=== PATIENT | female | born 1990 | race American Indian/Alaskan Native ===

== ENCOUNTER 2019-10-10 17:36 | Emergency (ER) | payer OTHER ==
--- NOTE | 2019-10-10 18:01 | Emergency Department Report ---
Blank Doc - Documentation Documentation: 28-year-old female that presents with n/v and is . denies any vaginal bleeding. This initial assessment/diagnostic orders/clinical plan/treatment(s) is/are subject to change based on patient's health status, clinical progression and re- assessment by fellow clinical providers in the ED. Further treatment and workup at subsequent clinical providers discretion. Patient/guardians urged not to elope from the ED as their condition may be serious if not clinically assessed and managed. Initial orders include: 1- Patient sent to [facility] for further evaluation and treatment 2-labs
--- NOTE | 2019-10-10 19:02 | Ultrasound Report ---
ULTRASOUND OBSTETRIC INDICATION / CLINICAL INFORMATION: pelvic pain. TECHNIQUE: Transabdominal. COMPARISON: None available. FINDINGS: GESTATIONAL SAC: Well-defined oval shape and intrauterine in location. YOLK SAC: No significant abnormality. EMBRYO/FETUS: No significant abnormality. - Blossom-Rump Length = 2.1 cm = 8 weeks, 5 day(s). - Heart Rate, beats per minute (if present) = 180 ADNEXA: No significant abnormality. FREE FLUID: None. ADDITIONAL FINDINGS: None. IMPRESSION: 1. Single, living intrauterine with estimated sonographic age of 8 weeks, 5 day(s). Signer Name: Saul Steward MD Signed: 10/10/2019 6:58 PM Workstation Name: [id number]
[2019-10-10] MEDS ORDERED: ONDANSETRON 4 MG/2 ML INJ IV ONE (19:06)
[2019-10-10] MEDS ORDERED: SODIUM CHLORIDE 0.9% 1000 ML 1,000 ML IV ONE (19:06)
[2019-10-10 19:08] LABS: Basophils % (Auto) 0.2 % (0.0-1.8); Hematocrit 36.4 % (30.3-42.9); Hemoglobin 12.1 gm/dl (10.1-14.3); Lymphocytes # (Auto) 0.9 K/mm3 (1.2-5.4); Lymphocytes % (Auto) 7.9 % (13.4-35.0); Mean Corpuscular HGB Conc 33 % (30-34); Mean Corpuscular Volume 81 fl (79-97); Monocytes # (Auto) 0.3 K/mm3 (0.0-0.8); Monocytes % (Auto) 2.6 % (0.0-7.3); Platelet Count 272 K/mm3 (140-440); Red Blood Count 4.52 M/mm3 (3.65-5.03); Red Cell Distribution Width 14.6 % (13.2-15.2)
[2019-10-10] MEDS ORDERED: MORPHINE 4 MG/1 ML INJ IV ONE ×2 (19:18→19:58)
--- NOTE | 2019-10-10 19:27 | Emergency Department Report ---
ED Abdominal Pain HPI - General Chief Complaint: Abdominal Pain Stated Complaint: PREG & DEHYDRATED Time Seen by Provider: 10/10/19 17:59 Source: patient Mode of arrival: Ambulatory Limitations: No Limitations - History of Present Illness Initial Comments: 28-year-old female with no past medical history or surgical history presents to the hospital planing of and pelvic pain since yesterday afternoon. Patient's LMP is May 20, 2019 and she states she plans on avoiding this . This is her second and she has 1 child and denies previous history of ectopics, miscarriages, abortions. For the moment I walk into the room patient is asking for morphine and is very difficult to examine. Patient states she is having lower abdominal cramping which is constant and becoming more severe with persistent nausea and vomiting. Patient states she needs morphine because she cannot take the pain anymore and she does not plan on k eeping the baby. She denies vaginal bleeding, care, or previous ultrasound during this . Patient also denies urinary symptoms, diarrhea, or fever. - Related Data Previous Rx's Medication Instructions Recorded Last Taken Type Acetaminophen/Codeine [Tylenol 1 tab PO Q6H PRN #10 tab 10/11/19 Unknown Rx /Codeine # 3 tab] Nitrofurantoin [place]/M-Cryst 100 mg PO Q12HR #14 capsule 10/11/19 Unknown Rx [Macrobid CAP] Ondansetron [Zofran Odt] 4 mg PO Q8HR PRN #20 tab.rapdis 10/11/19 Unknown Rx Potassium Chloride [K-Dur] 20 meq PO QDAY #3 tablet 10/11/19 Unknown Rx Allergies Allergy/AdvReac Type Severity Reaction Status Date / Time No Known Allergies Allergy Unverified 10/10/19 18:06 ED Review of Systems ROS: Stated complaint: PREG & DEHYDRATED Other details as noted in HPI Comment: All other systems reviewed and negative ED Past Medical Hx - Social History Smoking Status: Never Smoker Substance Use Type: None - Medications Home Medications: Home Medications Medication Instructions Recorded Confirmed Last Taken Type Acetaminophen/Codeine [Tylenol 1 tab PO Q6H PRN #10 tab 10/11/19 Unknown Rx /Codeine # 3 tab] Nitrofurantoin [place]/M-Cryst 100 mg PO Q12HR #14 capsule 10/11/19 Unknown Rx [Macrobid CAP] Ondansetron [Zofran Odt] 4 mg PO Q8HR PRN #20 tab.rapdis 10/11/19 Unknown Rx Potassium Chloride [K-Dur] 20 meq PO QDAY #3 tablet 10/11/19 Unknown Rx ED Physical Exam - General Limitations: No Limitations - Other Other exam information: General: + distress, difficult to exam due to pain and requests for morphine. Head: Atraumatic Eyes: normal appearance ENT: Moist mucous membranes Neck: Normal appearance, no midline tenderness Chest: Clear to auscultation bilaterally CV: Regular rate and rhythm Abdomen: Soft, normal bowel sounds, lower abdominal tenderness to palpation without rebound or guard, nondistended, no rebound or guarding Back: Normal inspection Extremity: Normal inspection, full range of motion Neuro: Alert O x 3, no facial asymmetry, speech clear, no gross motor sensory deficit Psych: Appropriate behavior Skin: No rash ED Course Vital Signs 10/10/19 18:00 Temperature 97.7 F Pulse Rate 63 Respiratory 18 Rate Blood Pressure 126/76 O2 Sat by Pulse 98 Oximetry - Reevaluation(s) Reevaluation #1: 10/10/19 20:26 I was able to reassess patient after a total of morphine 8 mg. She is asking for additional morphine and states she just wants to go to sleep. IV fluids in place. She just provided a urine sample. She denies fever. Patient reexamined and has primarily suprapubic tenderness to palpation that does extend to just below the umbilicus now that she has pain medication on board and is slightly more cooperative. No rebound or guarding. I told patient that she just received additional morphine we will give her additional medications if she continues to have pain but I cannot put her to sleep. 10/11/19 00:04 Patient did sleep for a while after receiving Benadryl but woke up requesting m ore pain medication stated she does not want to feel anything at discharge. She does look more relaxed with ED treatment and does not appear to be in acute distress and has persistent suprapubic pain without signs of right lower quadrant tenderness or rebound or guarding. Patient received IV Rocephin for UTI. Patient has requested narcotic pain medication throughout ED stay with a goal of being put to sleep and pain-free despite her . Patient insists that she does not plan on keeping this current and plans for an and understands there is adverse risk of IV narcotic exposure into her unborn child. ED Medical Decision Making - Lab Data Result diagrams: 10/10/19 18:01 10/10/19 18:01 Lab Results 10/10/19 10/10/19 10/10/19 Range/Units 18:01 18:01 18:01 WBC 11.3 H (4.5-11.0) K/mm3 RBC 4.52 (3.65-5.03) M/mm3 Hgb 12.1 (10.1-14.3) gm/dl Hct 36.4 (30.3-42.9) % MCV 81 (79-97) fl MCH 27 L (28-32) pg MCHC 33 (30-34) % RDW 14.6 (13.2-15.2) % Plt Count 272 (140-440) K/mm3 Lymph % (Auto) 7.9 L (13.4-35.0) % Peach % (Auto) 2.6 (0.0-7.3) % Eos % (Auto) 0.0 (0.0-4.3) % Baso % (Auto) 0.2 (0.0-1.8) % Lymph # 0.9 L (1.2-5.4) K/mm3 Peach # 0.3 (0.0-0.8) K/mm3 Eos # 0.0 (0.0-0.4) K/mm3 Baso # 0.0 (0.0-0.1) K/mm3 Seg Neutrophils % 89.3 H (40.0-70.0) % Seg Neutrophils # 10.1 H (1.8-7.7) K/mm3 Sodium 137 (137-145) mmol/L Potassium 3.0 L (3.6-5.0) mmol/L Chloride 100.7 (98-107) mmol/L Carbon Dioxide 19 L (22-30) mmol/L Anion Gap 20 mmol/L BUN 9 (7-17) mg/dL Creatinine 0.7 (0.6-1.2) mg/dL Estimated GFR > 60 ml/min BUN/Creatinine Ratio 13 % Glucose 110 H (65-100) mg/dL Calcium 9.8 (8.4-10.2) mg/dL Magnesium (1.7-2.3) mg/dL Total Bilirubin 0.90 (0.1-1.2) mg/dL AST 26 (5-40) units/L ALT 24 (7-56) units/L Alkaline Phosphatase 44 (35-129) units/L Total Protein 7.7 (6.3-8.2) g/dL Albumin 4.6 (3.9-5) g/dL Albumin/Globulin Ratio 1.5 % Lipase (13-60) units/L HCG, Quant 33573 H (0-4) mIU/mL Urine Color (Yellow) Urine Turbidity (Clear) Urine pH (5.0-7.0) Ur Specific [place] (1.003-1.030) Urine Protein (Negative) mg/dL Urine Glucose (UA) (Negative) mg/dL Urine Ketones (Negative) mg/dL Urine Blood (Negative) Urine Nitrite (Negative) Urine Bilirubin (Negative) Urine Urobilinogen (<2.0) mg/dL Ur Leukocyte Esterase (Negative) Urine WBC (Auto) (0.0-6.0) /HPF Urine RBC (Auto) (0.0-6.0) /HPF U Epithel Cells (Auto) (0-13.0) /HPF Urine Mucus /HPF Urine Yeast (Budding) /HPF Blood Type Ord Rhogam Gestat Weeks WEEKS 10/10/19 10/10/19 10/10/19 Range/Units 18:50 19:19 20:00 WBC (4.5-11.0) K/mm3 RBC (3.65-5.03) M/mm3 Hgb (10.1-14.3) gm/dl Hct (30.3-42.9) % MCV (79-97) fl MCH (28-32) pg MCHC (30-34) % RDW (13.2-15.2) % Plt Count (140-440) K/mm3 Lymph % (Auto) (13.4-35.0) % Peach % (Auto) (0.0-7.3) % Eos % (Auto) (0.0-4.3) % Baso % (Auto) (0.0-1.8) % Lymph # (1.2-5.4) K/mm3 Peach # (0.0-0.8) K/mm3 Eos # (0.0-0.4) K/mm3 Baso # (0.0-0.1) K/mm3 Seg Neutrophils % (40.0-70.0) % Seg Neutrophils # (1.8-7.7) K/mm3 Sodium (137-145) mmol/L Potassium (3.6-5.0) mmol/L Chloride (98-107) mmol/L Carbon Dioxide (22-30) mmol/L Anion Gap mmol/L BUN (7-17) mg/dL Creatinine (0.6-1.2) mg/dL Estimated GFR ml/min BUN/Creatinine Ratio % Glucose (65-100) mg/dL Calcium (8.4-10.2) mg/dL Magnesium 2.00 (1.7-2.3) mg/dL Total Bilirubin (0.1-1.2) mg/dL AST (5-40) units/L ALT (7-56) units/L Alkaline Phosphatase (35-129) units/L Total Protein (6.3-8.2) g/dL Albumin (3.9-5) g/dL Albumin/Globulin Ratio % Lipase 20 (13-60) units/L HCG, Quant (0-4) mIU/mL Urine Color (Yellow) Urine Turbidity (Clear) Urine pH (5.0-7.0) Ur Specific [place] (1.003-1.030) Urine Protein (Negative) mg/dL Urine Glucose (UA) (Negative) mg/dL Urine Ketones (Negative) mg/dL Urine Blood (Negative) Urine Nitrite (Negative) Urine Bilirubin (Negative) Urine Urobilinogen (<2.0) mg/dL Ur Leukocyte Esterase (Negative) Urine WBC (Auto) (0.0-6.0) /HPF Urine RBC (Auto) (0.0-6.0) /HPF U Epithel Cells (Auto) (0-13.0) /HPF Urine Mucus /HPF Urine Yeast (Budding) /HPF Blood Type A POSITIVE Ord Rhogam Gestat Weeks Rh pos WEEKS 10/10/19 Range/Units 20:26 WBC (4.5-11.0) K/mm3 RBC (3.65-5.03) M/mm3 Hgb (10.1-14.3) gm/dl Hct (30.3-42.9) % MCV (79-97) fl MCH (28-32) pg MCHC (30-34) % RDW (13.2-15.2) % Plt Count (140-440) K/mm3 Lymph % (Auto) (13.4-35.0) % Peach % (Auto) (0.0-7.3) % Eos % (Auto) (0.0-4.3) % Baso % (Auto) (0.0-1.8) % Lymph # (1.2-5.4) K/mm3 Peach # (0.0-0.8) K/mm3 Eos # (0.0-0.4) K/mm3 Baso # (0.0-0.1) K/mm3 Seg Neutrophils % (40.0-70.0) % Seg Neutrophils # (1.8-7.7) K/mm3 Sodium (137-145) mmol/L Potassium (3.6-5.0) mmol/L Chloride (98-107) mmol/L Carbon Dioxide (22-30) mmol/L Anion Gap mmol/L BUN (7-17) mg/dL Creatinine (0.6-1.2) mg/dL Estimated GFR ml/min BUN/Creatinine Ratio % Glucose (65-100) mg/dL Calcium (8.4-10.2) mg/dL Magnesium (1.7-2.3) mg/dL Total Bilirubin (0.1-1.2) mg/dL AST (5-40) units/L ALT (7-56) units/L Alkaline Phosphatase (35-129) units/L Total Protein (6.3-8.2) g/dL Albumin (3.9-5) g/dL Albumin/Globulin Ratio % Lipase (13-60) units/L HCG, Quant (0-4) mIU/mL Urine Color Yellow (Yellow) Urine Turbidity Slightly-cloudy (Clear) Urine pH 6.0 (5.0-7.0) Ur Specific [place] 1.021 (1.003-1.030) Urine Protein 100 mg/dl (Negative) mg/dL Urine Glucose (UA) 50 (Negative) mg/dL Urine Ketones 80 (Negative) mg/dL Urine Blood Neg (Negative) Urine Nitrite Neg (Negative) Urine Bilirubin Neg (Negative) Urine Urobilinogen < 2.0 (<2.0) mg/dL Ur Leukocyte Esterase Tr (Negative) Urine WBC (Auto) 11.0 H (0.0-6.0) /HPF Urine RBC (Auto) 4.0 (0.0-6.0) /HPF U Epithel Cells (Auto) 6.0 (0-13.0) /HPF Urine Mucus 3+ /HPF Urine Yeast (Budding) Few /HPF Blood Type Ord Rhogam Gestat Weeks WEEKS - Radiology Data Radiology results: report reviewed ULTRASOUND OBSTETRIC INDICATION / CLINICAL INFORMATION: pelvic pain. TECHNIQUE: Transabdominal. COMPARISON: None available. FINDINGS: GESTATIONAL SAC: Well- defined oval shape and intrauterine in location. YOLK SAC: No significant abnormality. EMBRYO/FETUS: No significant abnormality. - Willard-Rump Length = 2.1 cm = 8 weeks, 5 day(s). - Heart Rate, beats per minute (if present) = 180 ADNEXA: No significant abnormality. FREE FLUID: None. ADDITIONAL FINDINGS: None. IMPRESSION: 1. Single, living intrauterine with estimated sonographic age of 8 weeks, 5 day(s). - Medical Decision Making Patient treated with multiple doses of narcotics, Zofran, normal saline, D5 NS, IV Rocephin, and p.o. potassium with relief prior to discharge. Patient with UTI, 8 weeks and 5 days gestation , and nausea and vomiting presently with associated hypokalemia. Patient also tolerated p.o. intake after meds Pain improved at time of discharge. Patient will be discharged with recommended outpatient OB and PMD follow-up. Critical Care Time: No Critical care attestation.: If time is entered above; I have spent that time in minutes in the direct care of this critically ill patient, excluding procedure time. ED Disposition Clinical Impression: 8 weeks gestation of , UTI (urinary tract infection), Yeast vaginitis, Pelvic pain, Nausea and vomiting, Dehydration, Hypokalemia Disposition: DC-01 TO HOME OR SELFCARE Is pt being admited?: No Does the pt Need Aspirin: No Condition: Stable Instructions: (ED), Hyperemesis Gravidarum (ED), Hypokalemia (ED), Urinary Tract Infection in Women (ED), Vulvovaginal Candidiasis (ED) Additional Instructions: Take the medication as prescribed. Follow-up with your doctor or doctor/clinic provided. Return if symptoms worsen as indicated by your discharge instructions. Prescriptions: Potassium Chloride [K-Dur] 20 meq PO QDAY #3 tablet Nitrofurantoin Peach/M-Cryst [Macrobid CAP] 100 mg PO Q12HR #14 capsule Acetaminophen/Codeine [Tylenol /Codeine # 3 tab] 1 tab PO Q6H PRN #10 tab PRN Reason: Pain , Severe (7-10) Ondansetron [Zofran Odt] 4 mg PO Q8HR PRN #20 tab.rapdis PRN Reason: Nausea And Vomiting Referrals: PRIMARY CARE, [Primary Care Provider] - 3-5 Days [facility] [Provider Group] - 3-5 Days DAVID HOWE MD [Staff Physician] - 3-5 Days
[2019-10-10 19:54] LABS: Alanine Aminotransferase 24 units/L (7-56); Albumin 4.6 g/dL (3.9-5); Blood Urea Nitrogen 9 mg/dL (7-17); Calcium 9.8 mg/dL (8.4-10.2); Hemolysis Index 1
[2019-10-10 19:58] LABS: BUN/Creatinine Ratio 13
[2019-10-10 20:36] LABS: Bilirubin,Urine NEG (Negative); Blood,Urine NEG (Negative); Color,Urine Yellow (Yellow); Mucus,Urine 3+ /HPF; Urobilinogen,Urine < 2.0 mg/dL (<2.0)
[2019-10-10] MEDS ORDERED: cefTRIAXone/NS 1 GM/50 ML 1 GM/50 ML BAG IV ONE (20:40)
[2019-10-10] MEDS ORDERED: diphenhydrAMINE 50 MG/ML VIAL IV ONE (20:41)
[2019-10-10] MEDS ORDERED: POTASSIUM CHLORIDE ER 20 MEQ TAB PO ONE (20:41)
[2019-10-10] MEDS ORDERED: D5W/0.9% NACL 1,000 ML IV SCH (21:00)
[2019-10-10] MEDS ORDERED: HYDROmorphone 1 MG/1 ML INJ IV ONE (23:29)
[2019-10-11 00:38] VITALS: BP 109/67
== END 2019-10-11 00:36 | disposition home or self-care (01) ==
LOC: ED 17:36
DX: O23.41 Unspecified infection of urinary tract in pregnancy, first trimester (principal); O23.591 Infection of other part of genital tract in pregnancy, first trimester; O21.8 Other vomiting complicating pregnancy; O26.891 Other specified pregnancy related conditions, first trimester; B37.3 Candidiasis of vulva and vagina; R10.2 Pelvic and perineal pain; E86.0 Dehydration; E87.6 Hypokalemia; Z3A.08 8 weeks gestation of pregnancy; Z79.899 Other long term (current) drug therapy
CPT/HCPCS: 36415; 76801; 80053; 81001; 83690; 83735; 84702; 85025; 86900; 86901; 87086; 96361; 96365; 96375; 96376; 99284; J0696; J1170; J1200; J2270; J2405; J7030; J7042

== ENCOUNTER 2019-10-12 06:21 | Emergency (ER) | payer OTHER ==
[2019-10-12 06:46] VITALS: BP 131/89
[2019-10-12 07:16] LABS: Basophils % (Auto) 0.3 % (0.0-1.8); Hematocrit 34.2 % (30.3-42.9); Hemoglobin 11.5 gm/dl (10.1-14.3); Lymphocytes # (Auto) 1.3 K/mm3 (1.2-5.4); Lymphocytes % (Auto) 13.3 % (13.4-35.0); Mean Corpuscular HGB Conc 34 % (30-34); Mean Corpuscular Volume 80 fl (79-97); Monocytes # (Auto) 0.6 K/mm3 (0.0-0.8); Platelet Count 244 K/mm3 (140-440); Red Blood Count 4.27 M/mm3 (3.65-5.03); Red Cell Distribution Width 14.9 % (13.2-15.2)
[2019-10-12 07:41] LABS: Alanine Aminotransferase 39 units/L (7-56); Albumin 4.3 g/dL (3.9-5); Blood Urea Nitrogen 6 mg/dL (7-17); Calcium 9.4 mg/dL (8.4-10.2); Hemolysis Index 9
[2019-10-12 07:49] LABS: BUN/Creatinine Ratio 9
[2019-10-12] MEDS ORDERED: ONDANSETRON 4 MG/2 ML INJ IV ONE (08:36)
[2019-10-12] MEDS ORDERED: MORPHINE 4 MG/1 ML INJ IV ONE (08:36)
[2019-10-12] MEDS ORDERED: SODIUM CHLORIDE 0.9% 1000 ML 1,000 ML IV ONE (08:36)
[2019-10-12] MEDS ORDERED: POTASSIUM CHLORIDE ER 20 MEQ TAB PO ONE (08:37)
--- NOTE | 2019-10-12 08:44 | Emergency Department Report ---
ED Abdominal Pain HPI - General Chief Complaint: Abdominal Pain Stated Complaint: ABDOMINAL PAIN/VOMITING Time Seen by Provider: 10/12/19 08:09 Source: family Mode of arrival: Ambulatory Limitations: No Limitations - History of Present Illness Initial Comments: 28-year-old -[place] female reportedly 8 weeks complains to the emergency department about suprapubic pain which is been going on for over the last week. She was seen and evaluated emergency department a few days ago found to have a normal pelvic ultrasound with no further progression of pelvic symptoms outside of pelvic cramping and pain. There is no vaginal bleeding, no vaginal discharge or dysuria. Her previous visit did yield some electrolyte abnormalities and she has been continuing to vomit about 6 times in 24 hours. States that she has no plan on keeping the baby was not established with an [facility] at this present time primarily concerned about the discomfort. She is requesting morphine MD Complaint: abdominal pain Location: suprapubic Radiation: suprapubic Migration to: suprapubic Severity: moderate Quality: aching, dull Improves With: nothing Worsens With: nothing - Related Data Previous Rx's Medication Instructions Recorded Last Taken Type Acetaminophen/Codeine [Tylenol 1 tab PO Q6H PRN #10 tab 10/11/19 Unknown Rx /Codeine # 3 tab] Miconazole 2% [Monistat] 1 applicator VG QHS #7 day 10/11/19 Unknown Rx Nitrofurantoin [place]/M-Cryst 100 mg PO Q12HR #14 capsule 10/11/19 Unknown Rx [Macrobid CAP] Ondansetron [Zofran Odt] 4 mg PO Q8HR PRN #20 tab.rapdis 10/11/19 Unknown Rx Potassium Chloride [K-Dur] 20 meq PO QDAY #3 tablet 10/11/19 Unknown Rx Allergies Allergy/AdvReac Type Severity Reaction Status Date / Time No Known Allergies Allergy Unverified 10/10/19 18:06 ED Review of Systems ROS: Stated complaint: ABDOMINAL PAIN/VOMITING Other details as noted in HPI Comment: All other systems reviewed and negative ED Past Medical Hx - Past Medical History Previous Medical History?: No - Surgical History Past Surgical History?: No - Social History Smoking Status: Never Smoker Substance Use Type: None - Medications Home Medications: Home Medications Medication Instructions Recorded Confirmed Last Taken Type Acetaminophen/Codeine [Tylenol 1 tab PO Q6H PRN #10 tab 10/11/19 Unknown Rx /Codeine # 3 tab] Miconazole 2% [Monistat] 1 applicator VG QHS #7 day 10/11/19 Unknown Rx Nitrofurantoin [place]/M-Cryst 100 mg PO Q12HR #14 capsule 10/11/19 Unknown Rx [Macrobid CAP] Ondansetron [Zofran Odt] 4 mg PO Q8HR PRN #20 tab.rapdis 10/11/19 Unknown Rx Potassium Chloride [K-Dur] 20 meq PO QDAY #3 tablet 10/11/19 Unknown Rx ED Physical Exam - General Limitations: No Limitations General appearance: alert, in no apparent distress - Head Head exam: Present: atraumatic, normocephalic - Eye Eye exam: Present: normal appearance, PERRL, EOMI Pupils: Present: normal accommodation - ENT ENT exam: Present: normal exam, normal orophraynx, mucous membranes moist, TM's normal bilaterally - Neck Neck exam: Present: normal inspection, full ROM - Respiratory Respiratory exam: Present: normal lung sounds bilaterally. Absent: respiratory distress, wheezes, rales, chest wall tenderness - Cardiovascular Cardiovascular Exam: Present: regular rate, normal rhythm. Absent: systolic murmur, diastolic murmur, rubs, gallop - GI/Abdominal GI/Abdominal exam: Present: soft, tenderness (suprapubic region with palpation), normal bowel sounds - Extremities Exam Extremities exam: Present: normal inspection - Back Exam Back exam: Present: normal inspection - Neurological Exam Neurological exam: Present: alert, oriented X3 - Psychiatric Psychiatric exam: Present: normal affect, normal mood - Skin Skin exam: Present: warm, dry, intact, normal color. Absent: rash ED Course Vital Signs 10/12/19 06:31 Temperature 97.7 F Pulse Rate 70 Respiratory 18 Rate Blood Pressure 131/89 - Consultations Consultation #1: 10/12/19 8:32:01 Case discussed with him and Dr. Mccray who is aware of her visit on the on yesterday and a current lab chemistry plan is to replenish her potassium at this point in time no indication for an ultrasound per Dr. Mccray. He also advised to cover her pain with the requested medication. ED Medical Decision Making - Lab Data Result diagrams: 10/12/19 07:05 10/12/19 07:05 - Medical Decision Making 28-year-old F [place]cu[place] female presents emergency department complaining of continued pelvic pain was seen a few days ago found to be 8 weeks with elevated hCG quant which appears to have decreased some today. Upon further evaluation she later disclosed her being in the process of going through an with Dr. Hannon at [facility]. She was seen on 10/11/[address] Gilbert Mckeon persisted and discharged home with Tylenol 3 x10 and returns emergency department seeking eradicate the medication refill and more IV morphine.. Case was discussed with the current attending Dr. Shazia Mccray who advised did not be the need to repeat a pelvic ultrasound. We did replenish her potassium with oral K and she has been sipping fluids and ice chips she is ambulatory around the emergency department repeatedly requesting another dose of morphine and Benadryl before her discharge. Also requesting another prescription for pain medication. She advised that she has no medication allergies and wants to be prescribed any medication and states she is not planning on keeping the baby. Buys her very strongly to follow-up with her OB/ [facility] for further evaluation and guidance on her current and or her current process. Currently she is hemodynamically stable alert and oriented x3 speaking in full sentences and no reported comorbid complications Critical care attestation.: If time is entered above; I have spent that time in minutes in the direct care of this critically ill patient, excluding procedure time. ED Disposition Clinical Impression: Hypokalemia, Pelvic pain, Nausea and vomiting Disposition: DC-01 TO HOME OR SELFCARE Is pt being admited?: No Does the pt Need Aspirin: No Condition: Stable Instructions: Abdominal Pain (ED), Threatened Miscarriage (ED), (ED) Additional Instructions: Please take the potassium that was prescribed to you on yesterday by Dr. Etienne and also utilize the pain medication that was prescribed to you on yesterday by Dr. Mckeon as well add some anti-medic Referrals: [facility] [Other] - 2-[address] [Other] - 2-3 Days
[2019-10-12] MEDS ORDERED: diphenhydrAMINE 50 MG/ML VIAL IV STA (11:00)
[2019-10-12] MEDS ORDERED: fentaNYL 100 MCG/2 ML INJ IV ONE (11:01)
== END 2019-10-12 12:40 | disposition home or self-care (01) ==
LOC: ED 06:21
DX: O26.891 Other specified pregnancy related conditions, first trimester (principal); O21.8 Other vomiting complicating pregnancy; R10.2 Pelvic and perineal pain; E87.6 Hypokalemia; Z3A.08 8 weeks gestation of pregnancy; Z79.899 Other long term (current) drug therapy
CPT/HCPCS: 36415; 80053; 84702; 85025; 96361; 96374; 96375; 99283; J1200; J2270; J2405; J3010; J7030